=== PATIENT | male | born 1985 | race Caucasian/White ===

== ENCOUNTER → 2021-11-24 | Outpatient (CLI) | payer BC ==
[~2021-11-24] MED LIST: CATHETER FLUSH 10 ML SYR IV PRN
--- NOTE | 2021-11-24 16:14 | Diagnostic Imaging Report ---
INDICATION: Right upper quadrant pain. Patient was given 5.4 mCi technetium 99m Choletec intravenously and imaging over the abdomen was performed. At 1 hour patient ingested 8 ounces of Ensure and the gallbladder ejection fraction was calculated. Patient denied discomfort during the study. There is homogeneous uptake of activity by the liver with prompt excretion of activity into the common duct. There is passage of activity into the gallbladder. Normal passage of activity into the small bowel is noted. Gallbladder ejection fraction is normal at 51%. IMPRESSION: Normal HIDA scan and gallbladder ejection fraction. Dictated by: Dictated on workstation # [id number]
== END ==
LOC: CARD 12:45
PROVIDERS: ATTEND Surgery
DX: R10.11 Right upper quadrant pain (principal)
CPT/HCPCS: 78227; A9537

== ENCOUNTER 2021-12-01 05:31 | Outpatient (CLI) | payer BC ==
[~2021-12-01] VITALS: Ht 182 cm; Wt 90.8 kg
== END 2021-12-02 12:33 | disposition home or self-care (01) ==
LOC: PREOP 05:31
PROVIDERS: ATTEND Surgery
DX: Z01.818 Encounter for other preprocedural examination (principal)

== ENCOUNTER 2021-12-04 09:12 | Day surgery (SDC) | payer BC ==
[2021-12-04] VITALS (21 sets, daily range): BP systolic 107–134; BP diastolic 65–108
[~2021-12-04] VITALS: Ht 182 cm; Wt 90.8 kg
[2021-12-04] MEDS ORDERED: LIDOCAINE/EPI 1%-1:200,000 (XYLOCAINE) 30 ML VIAL ONE (09:32)
[2021-12-04] MEDS ORDERED: HYDR-3817 PO (09:35)
--- NOTE | 2021-12-04 09:35 | Discharge Inst-Surgical ---
D/C Lap Instructions-KIDO Reconcile Patient Problems Problems Reviewed?: Yes New, Converted, or Re-Newed RX: RX on Chart Follow Up Appt in 2 weeks Activity as tolerated No driving for 24 hours No driving while on pain medications Incentive Spirometry use every 2 hours while awake Regular Diet Symptoms to Report: Fever over 101 degree F, Nausea/Vomiting Infection Signs and Symptoms to report: Increased redness, Foul odor of wound, Increased drainage Bathing instructions: May shower Operative Area Clean/Dry; Keep incision clean/dry If any problems/questions: Contact your physician or go to Emergency Room CRUZ TRAN APRN Dec 04, 2021 09:35
--- NOTE | 2021-12-04 09:36 | Progress Note-Pre Operative ---
Pre-Operative Progress Note H&P Reviewed The H&P was reviewed, patient examined and no changes noted. Date Seen by Provider: Dec 04, 2021 Time Seen by Provider: 09:35 Date H&P Reviewed: Dec 04, 2021 Time H&P Reviewed: 09:30 Pre-Operative Diagnosis: Biliary Dyskinesia, Reflux, Nausea CRUZ TRAN APRN Dec 04, 2021 09:36
[2021-12-04] MEDS ORDERED: LACTATED RINGERS 1,000 ML IV PRN (09:45)
[2021-12-04] MEDS ORDERED: ACETAMINOPHEN 325 MG TABLET PO PRN (09:45)
[2021-12-04] MEDS ORDERED: ceFAZolin 2 GM IV Premixed 50 ML IV ONE (09:45)
[2021-12-04] MEDS ORDERED: morphine INJ 10 MG/ML 1ML (SYR OR VIAL) IVP PRN (09:45)
[2021-12-04] MEDS ORDERED: ONDANSETRON 4 MG/2 ML (SDV) Z0FRAN IVP PRN ×2 (09:45→12:15)
[2021-12-04] MEDS ORDERED: HYDROcodone/APAP 5 MG/325 MG (LORTAB) TAB PO ONE (09:45)
[2021-12-04] MEDS ORDERED: fentaNYL INJ 100 MCG/2 ML AMP ONE (09:47)
[2021-12-04] MEDS ORDERED: SEVOFLURANE (ULTANE) 15 ML INHAL SOLN ONE ×2 (09:47→12:44)
[2021-12-04] MEDS ORDERED: proPOfol 200 MG/20 ML (DIPRIVAN) VIAL IV ONE (09:47)
[2021-12-04] MEDS ORDERED: LIDOCAINE PF 2% 5 ML (XYLOCAINE) VIAL ONE (09:47)
[2021-12-04] MEDS ORDERED: ONDANSETRON 4 MG/2 ML (SDV) Z0FRAN ONE (09:47)
[2021-12-04] MEDS ORDERED: MIDAZOLAM 2 MG/2 ML (VERSED) VIAL ONE ×2 (09:47→12:49)
[2021-12-04] MEDS ORDERED: HYDROmorphone 2 MG/ML VIAL (DILAUDID) ONE ×2 (11:08→12:46)
[2021-12-04] MEDS ORDERED: NEOSTIGMINE 3 MG/3 ML VIAL ONE (11:28)
[2021-12-04] MEDS ORDERED: GLYCOPYRROLATE 0.2 MG/ML (ROBINUL) 2 ML VIAL ONE (11:28)
[2021-12-04] MEDS ORDERED: ROCURONIUM 50 MG/5 ML (ZEMURON) VIAL IV ONE (11:46)
--- NOTE | 2021-12-04 11:49 | Progress Note-Post Operative ---
Post-Operative Progess Note Surgeon (s)/Photographic Equipment Mechanic (s) Surgeon Dr. Gene Flores M.D. Photographic Equipment Mechanic: Liborio Tran [employer] Pre-Operative Diagnosis Biliary Dyskinesia, Reflux, Nausea Post-Operative Diagnosis Biliary Dyskinesia, Reflux esophagitis stage B, Small hiatal hernia (1.5cm), moderate gastritis Procedure & Operative Findings Date of Procedure 12/04/21 Procedure Performed/Findings Laparoscopic cholecystectomy and EGD with Biopsy Anesthesia Type GET Estimated Blood Loss Estimated blood loss (mL): Minimal Specimens/Packing Specimens Removed 1) Gallbladder 2) Antrum 3) GE junction LIBORIO TRAN [employer] Dec 04, 2021 11:49
[2021-12-04] MEDS ORDERED: HYDROmorphone 2 MG/ML VIAL (DILAUDID) IV ONE ×3 (12:15→13:15)
[2021-12-04] MEDS ORDERED: morphine INJ 10 MG/ML 1ML (SYR OR VIAL) IVP ONE (12:15)
[2021-12-04] MEDS ORDERED: PROMETHAZINE INJ 25 MG/ML (PHENERGAN) AMP ONE (12:41)
[2021-12-04 12:44] LABS: HEMATOCRIT 49 % (40-54); HEMOGLOBIN 16.3 g/dL (13.3-17.7); MEAN CORPUSCULAR HEMOGLOBIN 28 pg (25-34); MEAN CORPUSCULAR HGB CONC 33 g/dL (32-36); MEAN CORPUSCULAR VOLUME 86 fL (80-99); MEAN PLATELET VOLUME 10.1 fL (9.0-12.2); PLATELET COUNT 238 10^3/uL (130-400); WHITE BLOOD COUNT 8.8 10^3/uL (4.3-11.0)
[2021-12-04] MEDS ORDERED: PROMETHAZINE INJ 25 MG/ML (PHENERGAN) AMP IVP ONE (12:45)
[2021-12-04] MEDS ORDERED: MIDAZOLAM 2 MG/2 ML (VERSED) VIAL IVP ONE (13:15)
--- NOTE | 2021-12-04 14:29 | Anesthesia-General Post-Op ---
General Patient Condition Mental Status/LOC: Same as Preop Cardiovascular: Satisfactory Nausea/Vomiting: Absent Respiratory: Satisfactory Pain: Controlled Complications: Absent Post Op Complications Complications None Follow Up Care/Instructions Patient Instructions None needed. Anesthesia/Patient Condition Patient Condition Patient is doing much better. He was in severe pain and some nausea initially in PACU, with no relief after morphine, hydromorphone and promethazine. Dr Flores to PACU to evaluate the severe abdominal pain. Pt unable to relax for an abdominal exam, so midazolam 2 mg IV given and patient able to relax. Dr Flores felt his abd exam was normal. Patient was much more comfortable and spent ~1 additional hour in PACU. He is doing well now and transferred to [facility] without complaints, stable vital signs, no apparent adverse anesthesia problems. LAUREN CORRIGAN DO Dec 04, 2021 14:29
--- NOTE | 2021-12-04 18:25 | OPERATIVE REPORT ---
DATE OF SERVICE: 12/04/2021 PREOPERATIVE DIAGNOSES: Symptomatic biliary dyskinesia, peptic ulcer disease. POSTOPERATIVE DIAGNOSES: Symptomatic biliary dyskinesia, reflux esophagitis, Coral grade B, small hiatal hernia 1.5 cm in size, moderate gastritis. PROCEDURE: EGD with biopsy, laparoscopic cholecystectomy. SURGEON: Keith Toledo MD. PROGRAM THERAPIST: Liborio Palacios APRN. ANESTHESIA: General endotracheal. ESTIMATED BLOOD LOSS: Minimal. FINDINGS: Symptomatic biliary dyskinesia, reflux esophagitis, Coral grade B, small hiatal hernia 1.5 cm in size, moderate gastritis. DISPOSITION: The patient tolerated the procedure well. INDICATIONS: The patient is a 36-year-old male who has had issues with pain in the epigastric region as well as the left upper abdominal quadrant. He also reports that he feels early satiety after eating meals as well as a bloating sensation and nausea; however, no vomiting. He initially presented to the Emergency Department where a CT scan of the abdomen was performed, which did not show any abnormalities. An ultrasound was then performed, which did not show any gallstones and this was followed by a HIDA scan, which did show a low ejection fraction consistent with biliary dyskinesia. He also does report that he has gained weight over the holidays and has had some issues with acid indigestion in the past. DESCRIPTION OF PROCEDURE: The patient was brought to the operating room, laid supine on the table. After adequate IV pain and sedative medications and general endotracheal intubation, the abdomen was prepped and draped in standard surgical fashion. A 0.5% Marcaine with epinephrine was used to anesthetize the overlying skin left upper abdominal quadrant and a transverse skin incision made using a 15 blade. An 0 silk suture was applied to the medial aspect incision for retraction and a Veress needle inserted with a low opening pressure of 0 mmHg. The abdomen was insufflated to 15 mmHg pressure. The Veress needle removed and a 5 mm XL trocar placed followed by a 5 mm 45-degree angle laparoscope visualizing the peritoneal cavity. A 4-quadrant abdominal exploration was performed. There was a distended gallbladder, no gallbladder wall thickening. Under direct visualization, a supraumbilical 10 mm port was placed under direct visualization after the skin and peritoneal lining were anesthetized using 0.5% Marcaine with epinephrine and a transverse skin incision made using 15 blade. In a similar fashion, a right upper abdominal quadrant 5 mm port was placed. The patient was then placed in reverse Trendelenburg position as well as placed right side up, left side down. The fundus of the gallbladder was then retracted anteriorly and superiorly and the hepatoduodenal ligament was then dissected opened using blunt dissection as well as electrocautery on hook instrument as well as a [place] dissector. The entire critical view of safety was identified including the triangle of Calot as well as the cystic duct and artery as the only two structures going into the gallbladder as well as the cystic plate behind the proximal gallbladder. A timeout was then taken and the cystic duct and artery were then clipped proximally, distally and cut with EndoShears. The gallbladder was then dissected off the liver bed using electrocautery and hook instrument with visualization of good hemostasis as well as no leaking ducts of Luschka. The gallbladder was removed through the 10 mm port site using an EndoCatch bag. The 10 mm port site fascia and peritoneum were then closed under direct visualization using a Simba-Roxanne device and 0 Vicryl suture. The abdomen was desufflated and remaining ports removed. All skin incisions were closed using 4-0 Monocryl running subcuticular sutures. Wounds were then cleaned and covered with Dermabond. We then proceeded with the EGD and the mouthpiece was applied. The endoscope was placed in the mouth, visualizing the pharynx and hypopharyngeal region. Vocal cords, epiglottis and vallecula identified and appeared to be normal. The endoscope was then gently intubated. esophageal opening and esophagus insufflated. The endoscope was then advanced through the first, second, third portions of esophagus at the level of the GE junction, a reflux esophagitis, Coral grade B identified. No ulcers or strictures identified. A biopsy was taken with forceps with visualization of good hemostasis. The endoscope was then advanced into the stomach and endoscope retroflexed, visualizing a small hiatal hernia approximately 1.5 cm in size. There was a moderate gastritis noted. No formal ulcerations, polyps, or any neoplasms. A biopsy was taken of the antrum to rule out H. pylori with visualization of good hemostasis. The endoscope was then advanced to the pylorus and the first and second portion of the duodenum, which appeared normal with no distal obstructions. The endoscope was then slowly withdrawn while taking a second look and suctioning of residual air with no additional findings. The patient tolerated the procedure well. We will start IV normal pain medication as well as a clear liquid diet. Once he is tolerating clears, has good pain control with oral pain medications, ambulating well, we will discharge him home. We will be instructed to do no heavy lifting or exertion for the next two weeks. He is currently on Protonix. However, if he does not have any symptoms in the next few weeks, he may proceed with discontinuation of the Protonix. Job ID: [id number] DocumentID: [id number] Dictated Date: 12/04/2021 12:02:42 Internal Grinder Date: 12/04/2021 18:25:14 Dictated By: KEITH TOLEDO MD
== END 2021-12-04 16:40 ==
LOC: SDC 09:12
PROVIDERS: ATTEND Surgery
DX: K21.00 Gastro-esophageal reflux disease with esophagitis, without bleeding (principal); K29.70 Gastritis, unspecified, without bleeding; K81.1 Chronic cholecystitis; K82.8 Other specified diseases of gallbladder; K44.9 Diaphragmatic hernia without obstruction or gangrene; J45.909 Unspecified asthma, uncomplicated; Z79.899 Other long term (current) drug therapy
CPT/HCPCS: 36415; 85027; 87081; 93005